=== PATIENT | female | born 1935 | race Caucasian/White ===

== ENCOUNTER 2017-04-01 21:44 | Emergency (ER) | payer MEDICARE ==
[~2017-04-01] VITALS: Ht 160 cm; Wt 72.6 kg
[2017-04-01 21:50] VITALS: BP 124/70
[2017-04-01] MEDS ORDERED: Sodium Chloride 500ML 500 ML IV ONE (22:30)
--- NOTE | 2017-04-01 22:43 | Emergency Room Report ---
History of Present Illness General Chief Complaint: Syncope Source: Patient Present Illness HPI [id number] with witnessed syncope at [facility], room was very crowded, warm, patient wearing winter coat, sitting by fire had 2 glasses of wine "passed out" for 1 sec and vomited Denies precipitating chest pain, SOB, palpitations History of HTN, on 2 diuretics Also has known aortic stenosis Had negative cardiac cath last year No plans for Aortic valve replaced at this time Feels well now, no symptoms Allergies: Coded Allergies: No Known Allergies (Unverified , 04/01/17) Patient History Past Medical History: HTN, other - aortic stenosis Past Surgical History: none Pertinent Family History: none Social History: Reports: alcohol use, Denies: smoking, drug use Now: No Immunizations: UTD Reviewed Nursing Documentation: PMH: Agreed, PSxH: Agreed Nursing Documentation-PMH Hx Hypertension: Yes - high cholesterol Review of Systems All Other Systems: negative except mentioned in HPI Physical Exam Vital Signs Date Time Temp Pulse Resp B/P (MAP) Pulse Ox O2 Delivery O2 Flow Rate FiO2 04/01/17 21:41 97.7 78 14 124/70 98 Room Air Sp02 EP Interpretation: reviewed, normal General Appearance: normal inspection, well appearing, no apparent distress, alert, GCS 15, non-toxic Head: normocephalic, atraumatic Eyes: bilateral eye PERRL, bilateral eye EOMI ENT: normal ENT inspection, hearing grossly normal, normal pharynx, no angioedema, normal voice, TMs + canals normal, uvula midline, moist mucus membranes Neck: normal inspection, full range of motion, supple, thyroid normal, no meningismus, no bony tend Respiratory: normal inspection, lungs clear, normal breath sounds, no rhonchi, no respiratory distress, no retraction, no accessory muscle use, no wheezing, speaking full sentences Cardiovascular #1: regular rate, rhythm, no edema, no JVD, normal capillary refill, other - Blowing systolic murmur Gastrointestinal: normal inspection, normal bowel sounds, non tender, soft, no mass, no peritonitis, non-distended, no guarding, no hernia, no pulsatile mass Genitourinary: no CVA tenderness Musculoskeletal: normal inspection, back normal, normal range of motion, no calf tenderness, pelvis stable, John's Sign negative Neurologic: normal inspection, alert, oriented x3, responsive, publishing director III-XII nml as tested, motor strength/tone normal, cerebellar normal, normal gait, speech normal Psychiatric: normal inspection, judgement/insight normal, mood/affect normal, no suicidal/homicidal ideation, no delusions Skin: normal inspection, normal color, no rash Lymphatic: normal inspection, no adenopathy Medical Decision Making Diagnostic Impression: Primary Impression: Syncope Qualified Codes: R55 - Syncope and collapse Additional Impression: Dehydration ER Course [id number] with witnessed syncope Vital signs stable asymptomatic currently Likely vasovagal, multiple potential causes including and 2 diuretics However most likely vasovagal from dehydration ECG non ischemic Labs: No metabolic abnormalities, H&H stable, no leukocytosis, troponin WNL no Additional syncopal episodes in ER Patient to followup with primary care doctor, board saw runner was given copy of labs EKG ER course: Patient has remained stable during ED stay. Patient is to be discharged to home. Patient is instructed to follow up with their primary care doctor within 5 days. Patient is instructed to follow up with *specialist within 3 days. Strict return precautions discussed with patient such as fever, chills, worsening/severe pain, nausea, vomiting, which may indicate severe illness. Patient verbalizes understanding and agrees with plan. Please note that this Emergency Department Report was dictated using [employer] display representative technology software, occasionally this can lead to erroneous entry secondary to interpretation by the dictation equipment EKG Diagnostic Results Rate: normal Rhythm: NSR ST Segments: no acute changes ASA given to the pt in ED: No Rhythm Strip Diag. Results EP Interpretation: yes Rate: 66 Rhythm: NSR, no PVC's, no ectopy Last Vital Signs Date Time Temp Pulse Resp B/P (MAP) Pulse Ox O2 Delivery O2 Flow Rate FiO2 04/01/17 21:41 97.7 78 14 124/70 98 Room Air Status: improved Disposition: HOME, SELF-CARE Referrals: [facility] (PCP) KAREN ELIZABETH M.D. Apr 01, 2017 22:43
[2017-04-01] MEDS ORDERED: AMLODIPINE BESYL5 MG ORAL (22:53)
[2017-04-01] MEDS ORDERED: ATORVASTATIN CA20 MG ORAL (22:53)
[2017-04-01] MEDS ORDERED: SPIRONOLACTONE25 MG ORAL (22:53)
[2017-04-01] MEDS ORDERED: ASPIRIN81 MG ORAL (22:53)
[2017-04-01 23:16] LABS: BASOPHILS % (AUTO) 0.9 % (0.0-2.0); EOSINOPHILS % (AUTO) 0.8 % (0.0-3.0); LYMPHOCYTES % (AUTO) 9.9 % (20.0-45.0); MEAN CORPUSCULAR HGB CONC 31.1 G/DL (32.0-36.0); MEAN CORPUSCULAR VOLUME 90 FL (80-99); MONOCYTES % (AUTO) 6.4 % (1.0-10.0); PLATELET COUNT 149 K/UL (150-450); RED BLOOD COUNT 4.18 M/UL (4.20-5.40); RED CELL DISTRIBUTION WIDTH 11.9 % (11.6-14.8); WHITE BLOOD COUNT 10.2 K/UL (4.8-10.8)
[2017-04-01 23:33] LABS: ANION GAP 14 mmol/L (5-15); CALCIUM 9.3 MG/DL (8.5-10.1); CARBON DIOXIDE 25 MMOL/L (21-32); CHLORIDE 102 MMOL/L (98-107); CREATININE 1.3 MG/DL (0.55-1.30); POTASSIUM 4.1 MMOL/L (3.5-5.1); SODIUM 141 MMOL/L (136-145)
[2017-04-01 23:38] LABS: ALANINE AMINOTRANSFERASE 30 U/L (12-78); ALBUMIN/GLOBULIN RATIO 1.1 (1.0-2.7); ASPARTATE AMINO TRANSFERASE 21 U/L (15-37); TOTAL PROTEIN 7.3 G/DL (6.4-8.2)
[2017-04-01 23:45] VITALS: BP 128/59
[2017-04-02 00:35] VITALS: BP_SYST 128; BP_SYST 132; BP_DIAS 56; BP_DIAS 59
--- NOTE | 2017-04-04 00:25 | Cardiology Report ---
APPROVED REPORT EKG Measurement Heart [id number] MA [id number] Normal sinus rhythm Possible Anterior infarct, age undetermined Abnormal ECG
== END 2017-04-02 00:35 | disposition home or self-care (01) ==
LOC: EDBD 21:44 → EMR 22:30
DX: R55 Syncope and collapse (principal); E86.0 Dehydration; I10 Essential (primary) hypertension; I35.0 Nonrheumatic aortic (valve) stenosis
CPT/HCPCS: 36415; 80053; 84484; 85025; 93005; 96360; 99284